=== PATIENT | female | born 1930 | race Caucasian/White ===

== ENCOUNTER 2017-06-05 12:20 | Inpatient (IN) ==
[2017-06-05 15:08] VITALS: BMI 27.3
--- OUTSIDE RECORDS SUMMARY | 2017-06-05 15:31 | External Medical Summary | Continuity of Care Document ---
:1930 Author Organization [facility] Allergies Active Description Code Type Severity Reaction Onset Reported/ Identified Relationship Clinical to Patient Status Yes Penicillins Drug Unknown 07/15/2008 Aller gy Yes erythromycin 2755 Ingre moderate Unknown 06/13/2015 base dient Yes morphine 1545 Ingre moderate Unknown 06/13/2015 dient Yes Norflex 6675 Drug moderate Unknown 06/13/2015 Yes Penicillins 476 Aller moderate Unknown 06/13/2015 gen Group Yes Sulfa 491 Aller moderate GI 06/13/2015 (Sulfonamide gen Problems Antibiotics) Group Yes ketolide ketol User severe shaking 06/14/2015 antibiotics eneida Defin antib ed iotic s Yes Macrolide 479 Aller severe shaking 06/14/2015 Antibiotics gen Group Medications There is no data. Problems Date Dx Attending Type Code Diagnosis Diagnosed By Coded 06/27/2015 TAL STONE MD Z47.89 Encounter for other L orthopedic aftercare 06/27/2015 TAL STONE MD Z96.651 Presence of right L artificial knee joint 06/28/2015 TAL STONE MD Z47.89 Encounter for other L orthopedic aftercare 06/28/2015 TAL STONE MD Z96.651 Presence of right L artificial knee joint 07/06/2015 Tal Stone M17.11 Unilateral Primary Osteoarthritis, Right Knee 07/06/2015 TAL STONE MD Z47.89 Encounter for other L orthopedic aftercare 07/06/2015 TAL STONE MD Z96.651 Presence of right L artificial knee joint 07/25/2015 Froilan Cruz K29.70 Gastritis, Unspecified, Without Bleeding 09/26/2016 Alma Z01.812 Encounter For Brown Preprocedural Laboratory Examination 10/03/2016 Alma 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, Right Upper Limb 12/27/2016 Froilan Cruz Z12.11 Encounter For Screening For Malignant Neoplasm Of Colon 12/27/2016 Symone MERCER MD G44.221 Chronic tension-type CARLY B headache, intractable 12/27/2016 Symone MERCER MD R53.1 Weakness CARLY B 12/28/2016 Symone MERCER MD G44.221 Chronic tension-type CARLY B headache, intractable 12/28/2016 Symone MERCER MD R53.1 Weakness CARLY B 01/26/2017 Symone MERCER MD G44.221 Chronic tension-type CARLY B headache, intractable 01/26/2017 Symone MERCER MD R53.1 Weakness CARLY B 01/27/2017 D G44.221 Chronic tension-type headache, intractable 01/27/2017 D R53.1 Weakness 02/07/2017 D G44.221 Chronic tension-type headache, intractable 02/07/2017 D R53.1 Weakness Procedures Code [place] [address] PT GENEVA ABDI, TAL Sánchez 06/20/2015 EVALUATION 97683 THERAPEUTIC TAL STONE MD 06/20/2015 EXERCISES G8978 MOBILITY TAL STONE MD 06/20/2015 CURRENT STATUS G8979 MOBILITY TAL STONE MD 06/20/2015 GOAL STATUS 23303 TAL QUINTANA MD 06/22/2015 EXERCISES 45730 THERAPEUTIC TAL STONE MD 06/24/2015 EXERCISES 91722 THERAPEUTIC TAL STONE MD 06/27/2015 EXERCISES 46704 THERAPEUTIC TAL STONE MD 06/29/2015 EXERCISES 78198 THERAPEUTIC TAL STONE MD 07/01/2015 EXERCISES 35009 THERAPEUTIC TAL STONE MD 07/04/2015 EXERCISES 69685 THERAPEUTIC TAL STONE MD 07/06/2015 EXERCISES G8979 MOBILITY TAL STONE MD 07/06/2015 GOAL STATUS G8980 MOBILITY D/C TAL STONE MD 07/06/2015 STATUS 47442 THERAPEUTIC CARLY MERCER MD 12/19/2016 EXERCISES 61381 MANUAL CARLY MERCER MD 12/19/2016 THERAPY 1/> [facility] 32432 OT EVAL MESERET MERCER MD, CARLY Kemp 12/19/2016 COMPLEX 45 MIN G8981 BODY CARLY DOWD MD 12/19/2016 CURRENT STATUS G8982 BODY CARLY DOWD MD 12/19/2016 GOAL STATUS 87350 CARLY PADRON MD 12/21/2016 EXERCISES 64003 CARLY ESPINOZA MD 12/21/2016 THERAPY 1/> [facility] 84865 CARLY PADRON MD 12/24/2016 EXERCISES 97364 CARLY ESPINOZA MD 12/24/2016 THERAPY 1/> [facility] 70826 CARLY PADRON MD 01/02/2017 EXERCISES 27213 CARLY ESPINOZA MD 01/02/2017 THERAPY 1/> [facility] 27584 CARLY PADRON MD 01/04/2017 EXERCISES 27716 CARLY ESPINOZA MD 01/04/2017 THERAPY 1/> [facility] 03173 CARLY PADRON MD 01/07/2017 EXERCISES 45327 SHANNA MERCER MD, CARLY Kemp 01/07/2017 THERAPY 1/> [facility] 53936 CARLY PADRON MD 01/11/2017 EXERCISES 30156 CARLY ESPINOZA MD 01/11/2017 THERAPY 1/> [facility] 87981 CARLY PADRON MD 01/16/2017 EXERCISES 60410 CARLY ESPINOZA MD 01/16/2017 THERAPY 1/> [facility] 98079 CARLY PADRON MD 01/21/2017 EXERCISES 99393 CARLY ESPINOZA MD 01/21/2017 THERAPY 1/> [facility] 03828 CARLY PADRON MD 01/25/2017 EXERCISES 47739 CARLY ESPINOZA MD 01/25/2017 THERAPY 1/> [facility] G8982 BODY POS CARLY MERCER MD 01/25/2017 GOAL STATUS G8983 BODY POS D/C CARLY MERCER MD 01/25/2017 STATUS Results There is no data. Encounters ACCT No. Visit Discharge Status Pt. Type Provider Facility Loc./Unit Complaint Date/Time [id number] 07/07/2012 07/07/2012 CLS Emipatimansi Rider [facility].ORT [id number] 11:30:00 23:59:59 shay Orta, [facility] [id number] 12/26/2016 12/26/2016 DIS Outpatie Fabiana Cruz OUTPT Colonoscopy 12:39:00 23:59:00 shay [facility] [id number] 10/02/2016 10/02/2016 DIS Outpatie Lindsay Jung OUTPT right carpal 06:41:00 23:59:00 nt trini, [facility] release; right ring release trigger finger [id number] 09/25/2016 09/25/2016 DIS Outpatie Lindsay Jung OUTPT PAT 12:41:00 23:59:00 nt trini, [facility] [id number] 07/21/2015 07/21/2015 DIS Outpatie Fabiana Cruz OUTPT Esophagogastr 08:30:00 23:59:00 nt [facility] [id number] 06/14/2015 06/17/2015 DIS Inpatien Fabiana Stone INPT Right Total 07:35:00 20:35:00 t [facility] [id number] 12/28/2016 12/28/2016 CLS Outpatie JUAN [place] OT 7 00:01:00 23:59:59 nt , [facility] [id number] 12/19/2016 12/27/2016 DIS Outpatie JUAN [place] OT 9 13:03:00 23:59:00 nt , [facility] [id number] 06/28/2015 07/06/2015 DIS Outpatie GENEVA [place] OTHER 2 00:01:00 14:54:00 nt , [facility] [id number] 06/20/2015 06/27/2015 DIS Outpatie GENEVA [place] OTHER 4 09:20:00 23:59:00 nt [facility] [id number] 01/27/2017 Document 5 00:01:00 Registra tion [id number] 01/17/2017 01/17/2017 CLS Outpatie Juan, 11:20:03 23:59:59 nt Carly [id number] 12/13/2016 12/13/2016 CLS Outpatie Juan, 12:34:19 23:59:59 nt Carly [id number] 11/09/2016 11/09/2016 CLS Outpatie Juan, 11:29:27 23:59:59 nt Carly [id number] 11/08/2016 11/08/2016 CLS Outpatie Juan, 10:04:19 23:59:59 nt Carly [id number] 11/08/2016 11/08/2016 CLS Seda Mercer, 10:02:58 23:59:59 shay Dent [id number] 10/15/2016 10/15/2016 CLS Seda Mercer, 09:32:25 23:59:59 shay Dent [id number] 10/11/2016 10/11/2016 CLS Seda Mercer, 11:00:31 23:59:59 shay Dent
--- OUTSIDE RECORDS SUMMARY | 2017-06-05 15:31 | External Medical Summary ---
:1930 Author Organization [facility] Care Team Providers Name Role Phone JUAN ABDI, CARLY Primary Care Provider [phone] Summary purpose CCDA Sent to [facility] Chief Complaint and Reason for Visit No authorized Reason for Visit (Admitting Diagnosis) is available for this visit. Problem list No authorized problems tracked for continuity of care are available for this visit. Encounters No authorized problems tracked for encounter diagnoses are available for this visit. Medications No medications recorded for this patient visit Allergies, adverse reactions, alerts No allergy information is available for this patient. Immunizations No immunizations recorded for this patient visit Relevant diagnostic tests and/or laboratory data No authorized results are available for this patient visit History of procedures Procedure Code Code Type Description Date Performed Performing Physician 32136 CPT-4 THERAPEUTIC EXERCISES 01-02-2017 CARLY MARTINEZ 37277 CPT-4 MANUAL THERAPY 01-02-2017 CARLY MARTINEZ 26838 CPT-4 THERAPEUTIC EXERCISES 01-04-2017 CARLY MARTINEZ 29074 CPT-4 MANUAL THERAPY 01-04-2017 CARLY MARTINEZ 34261 CPT-4 MANUAL THERAPY 01-07-2017 CARLY MARTINEZ 44462 CPT-4 THERAPEUTIC EXERCISES 01-07-2017 CARLY MARTINEZ 62750 CPT-4 THERAPEUTIC EXERCISES 01-11-2017 CARLY MARTINEZ 65907 CPT-4 MANUAL THERAPY 01-11-2017 CARLY MARTINEZ 94299 CPT-4 THERAPEUTIC EXERCISES 01-16-2017 CARLYAKASH MARTINEZ 28134 CPT-4 MANUAL THERAPY 01-16-2017 CARLYAKASH MARTINEZ 84498 CPT-4 THERAPEUTIC EXERCISES 01-21-2017 CARLY MARTINEZ 40634 CPT-4 MANUAL THERAPY 01-21-2017 CARLY MARTINEZ 87557 CPT-4 THERAPEUTIC EXERCISES 01-25-2017 CARLY MARTINEZ 32974 CPT-4 MANUAL THERAPY 01-25-2017 CALRY MARTINEZ G8982 CPT-4 BODY POS GOAL STATUS 01-25-2017 CARLY MARTINEZ G8983 CPT-4 BODY POS D/C STATUS 01-25-2017 CARLY LITTLE Functional status No functional or cognitive status observations are available for this visit. Vital signs No authorized vital signs are available for this visit. Social history No Social History or smoking status observations were recorded for this visit. ( Unknown if ever smoked.) Treatment Plan No treatment plan text is available for this visit. Hospital discharge instructions No discharge instruction text is available for this visit.
--- OUTSIDE RECORDS SUMMARY | 2017-06-05 15:31 | External Medical Summary ---
:1930 Author Organization [facility] Care Team Providers Name Role Phone CARLY MARTINEZ MD Primary Care Provider [phone] Summary purpose CCDA Sent to [facility] Chief Complaint and Reason for Visit No [...] Code Type Description Date Performed Performing Physician 51936 CPT-4 OT EVAL MOD COMPLEX 45 12-19-2016 CARLY MARTINEZ MIN 65937 CPT-4 THERAPEUTIC EXERCISES 12-19-2016 CARLY MARTINEZ 69733 CPT-4 MANUAL THERAPY 12-19-2016 CARLY MARTINEZ G8981 CPT-4 BODY POS CURRENT 12-19-2016 CARLY MARTINEZ STATUS G8982 CPT-4 BODY POS GOAL STATUS 12-19-2016 CARLY MARTINEZ 07135 CPT-4 THERAPEUTIC EXERCISES 12-21-2016 CARLY MARTINEZ 82947 CPT-4 MANUAL THERAPY 12-21-2016 CARLY MARTINEZ 50908 CPT-4 THERAPEUTIC EXERCISES 12-24-2016 CARLY MARTINEZ 88219 CPT-4 MANUAL THERAPY 12-24-2016 CARLY MARTINEZ Functional status No functional or cognitive status [...]
--- OUTSIDE RECORDS SUMMARY | 2017-06-05 15:31 | External Medical Summary ---
:1930 Author Organization [facility] Address [address] [place] [address] Care Team Providers Name Role Phone Sima Crowder Unavailable Unavailable PROBLEMS Type Condition ICD9-CM Code [id number] Code Onset Condition SNOMED Code Dates Status Problem Personal Z85.828 Active [id number] history of malignant neoplasm of skin ALLERGIES No Information SOCIAL HISTORY Never Assessed PLAN OF CARE Activity Details Pending Test IHC - Immunohistochemical Stain(s) VITAL SIGNS MEDICATIONS Unknown Medications RESULTS No Results PROCEDURES No Known procedures IMMUNIZATIONS No Known Immunizations MEDICAL (GENERAL) HISTORY Type Description Date Medical History Cancer Medical History Arthritis Medical History Prosthetic Joint Medical History Diseases of the Skin Medical History Osteoporosis Medical History High Blood Pressure Surgical History tonsils and adnoids childhood Surgical History Uterine suspensory and appendix 1963 Surgical History Left Knee 1994 Surgical History Breast Lumpectomy 1998 Surgical History Facial Malignant Skin Cancer/ HX several since then 1994 Surgical History Right knee 2016 Surgical History Back 2007 Surgical History Carpal Tunnel Right 2017 Surgical History Carpal Tunnel Left 1998
--- OUTSIDE RECORDS SUMMARY | 2017-06-05 15:31 | External Medical Summary ---
:1930 Author Organization [facility] Address [address] [place] [address] Care Team Providers Name Role Phone Sima Crowder Unavailable Unavailable PROBLEMS Type Condition ICD9-CM Code [id number] Code Onset Condition SNOMED Code Dates Status Problem Personal Z85.828 Active 796540392 history of malignant neoplasm of skin ALLERGIES No Information SOCIAL HISTORY Never Assessed PLAN OF CARE VITAL SIGNS MEDICATIONS Unknown Medications RESULTS No [...]
--- OUTSIDE RECORDS SUMMARY | 2017-06-05 15:31 | External Medical Summary ---
:1930 Author Organization [facility] Address 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 Problem Personal Z85.828 Active 904357546 history of malignant neoplasm of skin ALLERGIES Substance Reaction Event Type Date Status Ketolides Unknown Non Drug Allergy Mar, Active Macrolides Unknown Non Drug Allergy Mar, Active Norflex Unknown Non Drug Allergy Mar, Active Sulfa Unknown Non Drug Allergy Mar, Active PCN Unknown Non Drug Allergy Mar, Active SOCIAL HISTORY Never Assessed PLAN OF CARE Activity Details Follow Up prn Reason: Future/Pending Procedure DESTRUCTION OF LESIONS, BENIGN, UP TO 14 VITAL SIGNS Heart Rate 65 /min 2017-04-11 Height 5 ft 6 in in 2017-04-11 Weight 168.9 lbs 2017-04-11 BMI 27.26 kg/m2 2017-04-11 Blood pressure systolic 148 mm Hg 2017-04-11 Blood pressure diastolic 89 mm Hg 2017-04-11 MEDICATIONS Medication Instructions Dosage Frequency Start Date End Date Duration Status Metoprolol Active Succinate Temazepam Active Citalopram Active Hydrobromide Vitamin C Active Losartan Potassium Active Multivitamin Active Vitamin K2 Active Vitamin D3 Active Advil Active RESULTS No Results PROCEDURES Procedure Date Ordered Result Body Site DESTRUCT B9 LESIONS, UP TO 14 Apr 11, 2017 DOC MEDS VERIFIED W/PT OR RE Apr 11, 2017 IMMUNIZATIONS No Known Immunizations MEDICAL (GENERAL) HISTORY [...] History Right knee 2016 Surgical History Back 2006 Surgical History Carpal Tunnel Right 2017 Surgical History Carpal Tunnel Left 1998
--- OUTSIDE RECORDS SUMMARY | 2017-06-05 15:31 | External Medical Summary ---
:1930 Author Organization [facility] Address 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 900823285 carcinoma of forehead Problem Personal Z85.828 Active 489262509 history of malignant neoplasm of skin ALLERGIES Substance Reaction Event Type Date Status Ketolides Unknown Non Drug Allergy Mar, Active Macrolides Unknown Non Drug Allergy Mar, Active Norflex Unknown Non Drug Allergy Mar, Active Sulfa Unknown Non Drug Allergy Mar, Active PCN Unknown Non Drug Allergy Mar, Active SOCIAL HISTORY Never Assessed PLAN OF CARE Activity Details Follow Up 1 Week Reason:S/R VITAL SIGNS MEDICATIONS Medication Instructions Dosage Frequency Start Date End Date Duration Status Citalopram Active Hydrobromide Temazepam Active Metoprolol Active Succinate Multivitamin Active Losartan Potassium Active Vitamin D3 Active Advil Active Vitamin K2 Active Vitamin C Active RESULTS No Results PROCEDURES Procedure Date Ordered Result Body Site REPAIR FACE/EARS/EYELIDS/NOSE/LIPS <2.5 CM Apr 03, 2017 [facility] 1 STAGE HNFG 5 BLOCKS Apr 03, 2017 [facility] HNFG EA ADDL STAGE Apr 03, 2017 IMMUNIZATIONS No Known Immunizations MEDICAL (GENERAL) [...]
--- OUTSIDE RECORDS SUMMARY | 2017-06-05 15:31 | External Medical Summary ---
:1930 Author Organization [facility] Address [address] [place] [address] Care Team Providers Name Role Phone Sima Crowder Unavailable Unavailable PROBLEMS Type Condition ICD9-CM Code [id number] Code Onset Condition SNOMED Code Dates Status Problem Personal Z85.828 Active 471900019 history of malignant neoplasm of skin ALLERGIES [...]
--- OUTSIDE RECORDS SUMMARY | 2017-06-05 15:31 | External Medical Summary ---
:1930 Author Organization [facility] Summary purpose CCDA Sent to [facility] Chief Complaint and Reason for Visit [...] Code Type Description Date Performed Performing Physician G8978 CPT-4 MOBILITY CURRENT 06-20-2015 MARÍA BEAN STATUS G8979 CPT-4 MOBILITY GOAL STATUS 06-20-2015 MARÍA BEAN 02649 CPT-4 PT EVALUATION 06-20-2015 MARÍA BEAN 56248 CPT-4 THERAPEUTIC EXERCISES 06-20-2015 MARÍA BEAN 73559 CPT-4 THERAPEUTIC EXERCISES 06-22-2015 MARÍA BEAN 63532 CPT-4 THERAPEUTIC EXERCISES 06-24-2015 MARÍA BEAN 79986 CPT-4 THERAPEUTIC EXERCISES 06-27-2015 MARÍA BEAN Functional status No functional or cognitive status [...]
--- OUTSIDE RECORDS SUMMARY | 2017-06-05 15:31 | External Medical Summary ---
:1930 Author Organization [facility] Summary purpose CCDA Sent to [facility] Chief Complaint and Reason for Visit [...] Code Type Description Date Performed Performing Physician 29446 CPT-4 THERAPEUTIC EXERCISES 06-29-2015 MARÍA BEAN 13308 CPT-4 THERAPEUTIC EXERCISES 07-01-2015 MARÍA BEAN 80864 CPT-4 THERAPEUTIC EXERCISES 07-04-2015 MARÍA BEAN Functional status No functional or [...]
--- OUTSIDE RECORDS SUMMARY | 2017-06-05 15:31 | External Medical Summary ---
:1930 Author Organization [facility] Care Team Providers Name Role Phone CARLY MARTINEZ MD Primary Care Provider [phone] Summary purpose CCDA Sent to [facility] Chief Complaint and Reason for Visit No [...] for this patient visit History of procedures No procedures recorded for this patient visit. Functional status No functional or cognitive status [...]
[2017-06-05] MEDS: ACETAMINOPHEN 500 MG TABLET PO SCH ×2 (16:00→22:02)
[2017-06-05] MEDS: ENOXAPARIN 40 MG/0.4 ML INJECTION SQ SCH (17:45)
[2017-06-05] MEDS: HYDROCODONE/APAP 5mg/325mg TABLET PO PRN ×2 (17:45→22:01)
[2017-06-05] MEDS: TEMAZEPAM 15 MG CAPSULE PO SCH (22:01)
[2017-06-05] MEDS: POLYETHYL GLYCOL 3350 17gm PACKET PO SCH (22:02)
[2017-06-06] MEDS: ACETAMINOPHEN 500 MG TABLET PO SCH ×3 (04:51→17:05)
[2017-06-06] MEDS: HYDROCODONE/APAP 5mg/325mg TABLET PO PRN ×3 (06:46→20:25)
[2017-06-06] MEDS: CALCIUM 250 + VIT D 125 TABLET PO SCH (08:33)
[2017-06-06] MEDS: ENOXAPARIN 40 MG/0.4 ML INJECTION SQ SCH (08:34)
[2017-06-06] MEDS: SENNOSIDES 8.6 MG TABLET PO SCH (08:34)
[2017-06-06] MEDS: LOSARTAN 100 MG TABLET PO SCH (08:34)
[2017-06-06] MEDS: CITALOPRAM 10 MG TABLET PO SCH (08:34)
[2017-06-06] MEDS ORDERED: CALCITONIN NASAL SPRAY 3.7ml NS SCH (09:00)
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
--- NOTE | 2017-06-06 11:20 | IRU 24Hr Post Admit Eval ---
24 Hr Post Admission Physical - Relevant Changes Relevant Changes: No Reviewed: I have reviewed the patient's information and concur with the finding and results of the pre-admission screen. Certification: I certify the patient for rehabilitation. - Patient Condition (1) Pelvic fracture Status: Acute Qualifiers: Encounter type: subsequent encounter Pelvic bone location: pubis Sublocation of pubis: other portion of pubis Fracture type: closed Laterality: left Fracture healing: with routine healing Qualified Code(s): S32.592D - Other specified fracture of left pubis, subsequent encounter for fracture with routine healing Code(s): S32.9XXA - Fracture of unspecified parts of lumbosacral spine and pelvis, initial encounter for closed fracture Classification: Present on IRF Admission, IRF Tx That Should Address Diagnosis, Diagnosis Requiring Medical Follow Up (2) Hypertension Status: Chronic Qualifiers: Hypertension type: essential hypertension Qualified Code(s): I10 - Essential (primary) hypertension Code(s): I10 - Essential (primary) hypertension Classification: Present on IRF Admission, IRF Tx That Should Address Diagnosis, Diagnosis Requiring Medical Follow Up (3) Cardiac arrhythmia Status: Chronic Qualifiers: Arrhythmia type: unspecified cardiac arrhythmia Qualified Code(s): I49.9 - Cardiac arrhythmia, unspecified Code(s): I49.9 - Cardiac arrhythmia, unspecified Classification: Present on IRF Admission, Diagnosis Requiring Medical Follow Up - Prior Functional Status Lives With: Alone Residence Type: Apartment/Private Home Assitive Devices: None Prior Functional Status: Indep. at home or school, Indep. w/ IADL - Current Functional Status Current Level of Function: Current level of functioning is as follows: She is independent for eating, requires supervision for grooming. She requires maximum assistance for lower body dressing, moderate assistance for toileting, minimum assistance for bed/ chair/wheelchair transfers and moderate assistance for toilet transfers. Requires total assistance for walking with a rolling walker about 40 feet. She is unable to climb stairs at the present time. Failed Alternative Therapy: Arrived from Acute Care Patient Requirements: The patient requires oversight by rehabilitation physician to manage their rehabilitation treatment plan and multidisciplinary approach to care that can only be provided in an IRF and requires a multidisciplinary approach to care, provided by professional PTs, OTs, STs, dieticians, RTs, rehabilitation nurses and is not available in lesser levels of care. Limitations Req: Mobility Impairment, ADL Impairment Physical Therapy Minutes: 90 Occupational Therapy Minutes: 90 Therapy: The patient is to receive therapy at least 5 days a week. ROM Deficit: Right Lower Extremity, Left Lower Extremity - Complications/Comorbidities Impact on Functional Outcomes: Patient's pain may negatively impact her functional outcome. Barriers to Discharge: Weakness, Endurance, Pain Control - Plan to Avoid Complications Plan to Avoid Complications: The patient cannot receive this care in a lesser intensive setting such as Fdc or Outpatient Therapy due to the patient requiring the following : To allow adequate therapy, the patient requires improved pain management. She requires close monitoring of her blood pressures to avoid excessive hypertension in view of the pain. She requires a multidisciplinary approach with 24 rehabilitation nursing monitoring and assessment as well as PT, OT and medical supervision. .
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
[2017-06-06] MEDS: CALCITONIN NASAL SPRAY 3.7ml NS SCH (14:58)
[2017-06-06] MEDS: POLYETHYL GLYCOL 3350 17gm PACKET PO SCH (20:31)
[2017-06-06] MEDS: TEMAZEPAM 15 MG CAPSULE PO SCH (22:53)
[2017-06-07] MEDS: ACETAMINOPHEN 500 MG TABLET PO SCH ×5 (05:35→22:11)
[2017-06-07] MEDS: HYDROCODONE/APAP 5mg/325mg TABLET PO PRN ×4 (06:11→22:13)
[2017-06-07] MEDS: CALCIUM 250 + VIT D 125 TABLET PO SCH (09:03)
[2017-06-07] MEDS: FAMOTIDINE 20 MG TABLET PO SCH (09:03)
[2017-06-07] MEDS: SENNOSIDES 8.6 MG TABLET PO SCH (09:03)
[2017-06-07] MEDS: ENOXAPARIN 40 MG/0.4 ML INJECTION SQ SCH (09:03)
[2017-06-07] MEDS: CITALOPRAM 10 MG TABLET PO SCH (09:03)
[2017-06-07] MEDS: CALCITONIN NASAL SPRAY 3.7ml NS SCH (09:04)
[2017-06-07] MEDS: LOSARTAN 100 MG TABLET PO SCH (09:04)
--- NOTE | 2017-06-07 11:07 | IRU Progress Note ---
- Subjective/Serverity of Illness Date: 06/07/17 Ms. Sr was assessed in her room on inpatient rehabilitation. She says that the pain continues to be an issue. This is predominantly in both groins but also somewhat in the right piriformis area she states. She does have discomfort with transfers and with ambulation. Despite that she is very cooperative with therapy and is making progress. Denies cardiac arrhythmia/palpitations sensations. Denies dyspnea. Brief therapy update: For occupational therapy she is independent for upper body dressing. Lower body dressing has improved from standby assist to modified independent level. Bed/chair/wheelchair transfers have improved from minimum assistance to modified independent. She is also seen by physical therapy. Bed/ chair/wheelchair transfers are standby assistance level. She is now able to ambulate 214 feet with standby assist with a front-wheeled walker. Update on medical issues were actively monitoring and managing as follows: 1. Hypertension: Her blood pressure appears to be adequately controlled at present. 2. Cardiac Arrhythmia: Denies palpitations. Upon examination she appears to be in a regular rhythm. 3. Uncontrolled pain from the pelvic fracture: She continues to complain of discomfort from the pelvic fracture which is a barrier to progress. Exam Vital Signs: Temperature 98.4 F 06/07/17 08:00 Pulse Rate 83 06/07/17 08:00 Respiratory Rate 16 06/07/17 08:00 Blood Pressure 124/67 06/07/17 08:00 Pulse Oximetry 90 06/07/17 08:00 Height/Weight/BMI: Height 1.68 m Weight 76.8 kg Body Mass Index 27.3 - Constitutional Present: mild distress (Bilat groin pain), well nourished, well developed, cooperative - Routine HEENT Exam Head: Present: normocephalic Eye: Present: EOMI ENT: Present: mucous membranes moist, oropharynx clear, dentition normal - Routine Neck Exam Present: supple - Routine Respiratory Exam Present: CTA bilaterally. Absent: wheezes - Routine Cardiovascular Exam Present: RRR, S1, S2. Absent: murmur - Routine Abdominal Exam Present: soft, normoactive bowel sounds, non distended. Absent: tenderness - Routine Extremities Exam Present: no edema - Routine Skin Exam Present: dry, warm - Routine Neurological Exam Present: alert, oriented X3, CN II-XII intact - Routine Psychiatric Exam Present: normal affect Results IRU - Labs Labs: I have reviewed the patient's labs and other providers notes. IRU A/P (1) Pelvic fracture Qualifiers: Encounter type: subsequent encounter Pelvic bone location: pubis Sublocation of pubis: other portion of pubis Fracture type: closed Laterality: left Fracture healing: with routine healing Qualified Code(s): S32.592D - Other specified fracture of left pubis, subsequent encounter for fracture with routine healing Current visit: Yes Status: Acute She is very cooperative with therapy and is making progress. However she does have significant pain in bilateral groin areas. This is an impediment to her progress. She remains on hydrocodone 5 mg size tablets. (2) Hypertension Qualifiers: Hypertension type: essential hypertension Qualified Code(s): I10 - Essential (primary) hypertension Current visit: Yes Status: Chronic Her blood pressures are reviewed and appear to be adequate. (3) Cardiac arrhythmia Qualifiers: Arrhythmia type: unspecified cardiac arrhythmia Qualified Code(s): I49.9 - Cardiac arrhythmia, unspecified Current visit: Yes Status: Chronic She has reported a history of "extra systoles" in the past. Also was told that she has "mild atrial fibrillation" in the past. At present she denies any palpitations and exam reveals a regular rhythm. DVT Prophylaxis: Lovenox Resuscitation Status: Full Code - Course Hospital Course: Mitul Pederson MD: 06/07/17 11:08 Patient is very cooperative with therapy despite her pain. Remains on hydrocodone 5 mg tablets. Pain mainly in bilateral groin areas. Blood pressures are stable. - Interventions to Obtain Goals PT Treatment Plan: Balance/Proprioception, Functional Activities, Gait Training , Patient/Family Education, Therapeutic Exercise OT Treatment Plan: ADL (Basic Care), Balance Training, IADL, Pt./Family Education, Ther. Exercise for ADL Goals Progress/Modifications: Patient is progressing with therapy despite her pain. We will modify pain medication as needed. Her blood pressures are stable. She denies any palpitations and heart exam is unremarkable at present. Please note that the patient's individual plan of care was developed and documented today, requiring review of therapy notes, medical conditions and anticipated functional recovery. This required additional medical decision making with regard to interaction of the patient's medical issues with the anticipated functional recovery. Please see separate document
--- NOTE | 2017-06-07 11:12 | IRU Plan of Care ---
[facility] Overall Plan of Care - Date Date: 06/07/17 - Relevant Changes Relevant Changes: No Reviewed: I have reviewed the patient's information and concur with the finding and results of the pre-admission screen. Certification: I certify the patient for rehabilitation. - Medical Prognosis Medical Prognosis: Good Vital Signs: Last Vital Signs Temp 98.4 F 06/07/17 08:00 Pulse 83 06/07/17 08:00 Resp 16 06/07/17 08:00 BP 124/67 06/07/17 08:00 Pulse Ox 90 06/07/17 08:00 - Anticipated Interventions Anticipated Interventions: The patient requires inpatient IRF care for PT and OT for residuals remaining from fracture of pelvis resulting in muscular weakness and strength deficits. An individualized overall plan of care has been developed after careful review of the patient's preadmission screening, post admission physician evaluation and assessments of all therapy disciplines and/or other pertinent clinicians involved in treating the patient. This indicates medical necessity and rehabilitation necessity have been established through a thorough review of all available medical information. ROM Deficit: Right Lower Extremity, Left Lower Extremity - Current Functional Status Failed Alternative Therapy: Arrived from Acute Care Patient Requires: The patient requires oversight by rehabilitation physician to manage their rehabilitation treatment plan and multidisciplinary approach to care that can only be provided in an IRF and requires a multidisciplinary approach to care, provided by professional PTs, OTs, STs, rehabilitation nurses, and may require STs, dieticians, and RTS. This is not available in lesser levels of care. Physical Therapy Minutes: 90 Occupational Therapy Minutes: 90 Therapy: The patient is to receive therapy at least 5 days a week. - Anticipated LOS/Outcomes Anticipated Functional Outcome: It is anticipated the patient will be able to return to her home at modified independent level of functioning with a front-wheeled walker. It is anticipated her pain will continue however for several weeks but be manageable with oral pain medications and positioning. It is also anticipated she will be independent with ADLs Anticipated Length of Stay (days): 7 Anticipated DC Destination: Home, Self Care, Home Health Service Home Safety Plan: The patient will be provided with the development of a Home Safety Plan for return to a home or home-like environment and and to ensure safety post discharge. - Plan to Avoid Complications Barriers to Attaining Goals: Weakness, Endurance, Pain Control Plan to Avoid Complications: The patient cannot receive this care in a lesser intensive setting such as Senior Care or Outpatient Therapy due to the patient requiring the following : Due to risk of uncontrolled pain as well as her hypertension and risk of falls , the patient requires a multidisciplinary approach with 24 rehabilitation nursing monitoring and treatment of her pain, physical therapy and occupational therapy with medical supervision.
[2017-06-07] MEDS: TEMAZEPAM 15 MG CAPSULE PO SCH (20:28)
[2017-06-07] MEDS: POLYETHYL GLYCOL 3350 17gm PACKET PO SCH (20:29)
[2017-06-08] MEDS: ACETAMINOPHEN 500 MG TABLET PO SCH ×4 (03:31→22:33)
[2017-06-08] MEDS: HYDROCODONE/APAP 5mg/325mg TABLET PO PRN ×3 (06:42→19:12)
[2017-06-08] MEDS: LOSARTAN 100 MG TABLET PO SCH (09:59)
[2017-06-08] MEDS: CITALOPRAM 10 MG TABLET PO SCH (09:59)
[2017-06-08] MEDS: CALCIUM 250 + VIT D 125 TABLET PO SCH (09:59)
[2017-06-08] MEDS: SENNOSIDES 8.6 MG TABLET PO SCH ×2 (09:59→10:13)
[2017-06-08] MEDS: FAMOTIDINE 20 MG TABLET PO SCH (10:03)
[2017-06-08] MEDS: ENOXAPARIN 40 MG/0.4 ML INJECTION SQ SCH (10:03)
[2017-06-08] MEDS: CALCITONIN NASAL SPRAY 3.7ml NS SCH (10:04)
[2017-06-08] MEDS: POLYETHYL GLYCOL 3350 17gm PACKET PO SCH (20:18)
[2017-06-08] MEDS: TEMAZEPAM 15 MG CAPSULE PO SCH (20:18)
[2017-06-09] MEDS: ACETAMINOPHEN 500 MG TABLET PO SCH ×3 (03:12→18:02)
[2017-06-09] MEDS: IBUPROFEN 200 MG TABLET PO PRN (08:18)
[2017-06-09] MEDS: SENNOSIDES 8.6 MG TABLET PO SCH (08:19)
[2017-06-09] MEDS: FAMOTIDINE 20 MG TABLET PO SCH (08:19)
[2017-06-09] MEDS: CITALOPRAM 10 MG TABLET PO SCH (08:20)
[2017-06-09] MEDS: CALCIUM 250 + VIT D 125 TABLET PO SCH (08:20)
[2017-06-09] MEDS: LOSARTAN 100 MG TABLET PO SCH (08:20)
[2017-06-09] MEDS: CALCITONIN NASAL SPRAY 3.7ml NS SCH (09:43)
[2017-06-09] MEDS: HYDROCODONE/APAP 5mg/325mg TABLET PO PRN ×3 (09:43→20:21)
[2017-06-09] MEDS: ENOXAPARIN 40 MG/0.4 ML INJECTION SQ SCH (09:43)
--- NOTE | 2017-06-09 14:19 | Progress Note ---
- Date 06/09/17 Subjective: F/U: pelvic fracture Ledy is seen today while sitting in her recliner. She has a bright affect and reports that she feels great today, stating that she slept well last night. Her pain is well controlled and she feels that she is making great progress with therapies. She denies any concerns or complaints. No chest pain, shortness of breath, abdominal pain, nausea, vomiting or dysuria. Her appetite is good and bowels are moving. She does express some anxiousness about being discharged home "too soon" but no known discharge plan is currently set. Objective Vital signs: Temperature 98.4 F 06/09/17 07:45 Pulse Rate 91 06/09/17 07:45 Respiratory Rate 18 06/09/17 07:45 Blood Pressure 144/72 H 06/09/17 07:45 Pulse Oximetry 95 06/09/17 07:45 Height/Weight/BMI: Height 5 ft 6 in Weight 169 lb 5.04 oz Body Mass Index 27.3 Comments: Patient sitting in her recliner with bright affect and cheerful. - Constitutional Present: no acute distress, well nourished, well developed, cooperative - Routine HEENT Exam Head: Present: normocephalic, atraumatic Eye: Present: PERRL. Absent: conjunctival icterus ENT: Present: mucous membranes moist - Routine Respiratory Exam Present: CTA bilaterally. Absent: rales, respiratory distress, rhonchi, stridor , wheezes, crackles - Routine Cardiovascular Exam Present: RRR, S1, S2 - Routine Abdominal Exam Present: soft, normoactive bowel sounds, non distended, non tender - Routine Extremities Exam Present: no edema, non tender, pulses intact - Routine Back/Spine/Pelvis Exam Back/Spine: Present: full ROM. Absent: vertebral tenderness - Routine Musculoskeletal Exam Musculoskeletal: Present: moving extremities well - Routine Skin Exam Present: intact, dry, warm. Absent: jaundice Comments: afebrile. - Routine Neurological Exam Present: alert, oriented X3, CN II-XII intact, moving all extremities, hearing grossly intact, normal speech. Absent: facial asymmetry - Routine Lymphatic Exam Lymphatic: Absent: lymphedema - Routine Psychiatric Exam Present: cooperative Results - Labs CBC & Chem 7: 06/10/17 04:15 06/10/17 04:15 Assessment and Plan Assessment and Plan: Impression Pelvic fractures Abdominal wall bruising HTN Cardiac arrhythmia, rate control with metoprolol (questionable hx of A-fib) History of breast cancer, s/p chemo and radiation (approx 18 yrs ago) Depression/anxiety since the of her 3 years ago Spinal stenosis GERD Insomnia Plan - 06/09/17. Ledy appears to be making good gains and is medically stable. Continue therapies and pain control per Dr. Pederson. Labs on 06/06/17 revealed anemia (hgb 11.9) and otherwise unremarkable. Patient denies any dizziness, lightheadedness or syncope. Will continue to monitor with periodic labs. Continue Lovenox for DVT prophylaxis. Continue to encourage ambulation and incentive spirometry. DVT Prophylaxis: Lovenox GI Prophylaxis: Protonix Resuscitation Status: Full Code - Time spent with patient Time with patient PN: 25 minutes - Physician Narrative Physician: Sharonda Noriega MD Narrative: Date: 06/09/17 Time: 1414 Hospital Course Summary Disclaimer: The visit summary below is not to be considered part of the above Progress Note. Hospital Course: 06/06/17 PT/OT/pain meds per Dr. Pederson. Outside records reviewed; labs hgb 12.5, K 3.6, Cr 0.9, BUN 21 while hospitalized at [place]. Labs repeated this am were stable. VSS. Continue meds for HTN. Of note, records from [place] indicate that she used to take HCTZ but this was dc'd during hospitalization. Start Pepcid d/t ibuprofen use and hx of GERD. Lovenox for VTE ppx. Plan - 06/09/17. Ledy appears to be making good gains and is medically stable. Continue therapies and pain control per Dr. Pederson. Labs on 06/06/17 revealed anemia (hgb 11.9) and otherwise unremarkable. Patient denies any dizziness, lightheadedness or syncope. Will continue to monitor with periodic labs. Continue Lovenox for DVT prophylaxis. Continue to encourage ambulation and incentive spirometry.
[2017-06-09] MEDS: POLYETHYL GLYCOL 3350 17gm PACKET PO SCH (20:22)
[2017-06-09] MEDS: TEMAZEPAM 15 MG CAPSULE PO SCH (20:22)
[2017-06-10] MEDS: ACETAMINOPHEN 500 MG TABLET PO SCH ×4 (00:13→17:40)
[2017-06-10] MEDS: HYDROCODONE/APAP 5mg/325mg TABLET PO PRN ×3 (08:24→17:39)
[2017-06-10] MEDS: SENNOSIDES 8.6 MG TABLET PO SCH (09:00)
[2017-06-10] MEDS: FAMOTIDINE 20 MG TABLET PO SCH (09:01)
[2017-06-10] MEDS: CITALOPRAM 10 MG TABLET PO SCH (09:02)
[2017-06-10] MEDS: CALCIUM 250 + VIT D 125 TABLET PO SCH (09:02)
[2017-06-10] MEDS: LOSARTAN 100 MG TABLET PO SCH (09:06)
[2017-06-10] MEDS ORDERED: SENNOSIDES 8.6 MG TABLET PO PRN (10:38)
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
[2017-06-10] MEDS: ENOXAPARIN 40 MG/0.4 ML INJECTION SQ SCH (11:36)
[2017-06-10] MEDS: CALCITONIN NASAL SPRAY 3.7ml NS SCH (11:36)
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
[2017-06-10] MEDS: POLYETHYL GLYCOL 3350 17gm PACKET PO SCH (21:31)
[2017-06-10] MEDS: TEMAZEPAM 15 MG CAPSULE PO SCH (21:32)
[2017-06-10] MEDS: IBUPROFEN 200 MG TABLET PO PRN (21:34)
[2017-06-11] MEDS: ACETAMINOPHEN 500 MG TABLET PO SCH ×3 (04:00→09:36)
[2017-06-11] MEDS: HYDROCODONE/APAP 5mg/325mg TABLET PO PRN ×3 (04:16→13:19)
[2017-06-11] MEDS: CALCIUM 250 + VIT D 125 TABLET PO SCH (09:10)
[2017-06-11] MEDS: FAMOTIDINE 20 MG TABLET PO SCH (09:10)
[2017-06-11] MEDS: CITALOPRAM 10 MG TABLET PO SCH (09:10)
[2017-06-11] MEDS: CALCITONIN NASAL SPRAY 3.7ml NS SCH (09:10)
[2017-06-11] MEDS: ENOXAPARIN 40 MG/0.4 ML INJECTION SQ SCH (09:11)
[2017-06-11 09:13] VITALS: BP 159/71; PULSE 74; RESP 18; TEMP 97.7; O2SAT 95
[2017-06-11] MEDS: LOSARTAN 100 MG TABLET PO SCH (09:35)
--- NOTE | 2017-06-11 10:49 | IRU Progress Note ---
- Subjective/Serverity of Illness Date: 06/11/17 Ms. Sr was interviewed and examined in her room on inpatient rehabilitation. She requests a prescription for toilet bars to go around the toilet for safety, leg estimator printing and a portable seat cushion. This is provided today to her in the form of a prescription. Denies any chest pain or shortness of breath. Appetite remains good. She is stable for dismissal. Exam Vital Signs: Temperature 97.7 F 06/11/17 09:12 Pulse Rate 74 06/11/17 09:12 Respiratory Rate 18 06/11/17 09:12 Blood Pressure 159/71 H 06/11/17 09:12 Pulse Oximetry 95 06/11/17 09:12 Height/Weight/BMI: Height 1.68 m Weight 79.6 kg Body Mass Index 27.3 - Constitutional Present: no acute distress, well nourished, well developed, cooperative - Routine HEENT Exam Head: Present: normocephalic Eye: Present: EOMI ENT: Present: mucous membranes moist, dentition normal - Routine Neck Exam Present: supple - Routine Respiratory Exam Present: CTA bilaterally. Absent: dyspnea, respiratory distress, wheezes - Routine Cardiovascular Exam Present: RRR, S1, S2. Absent: murmur - Routine Abdominal Exam Present: soft, normoactive bowel sounds, non distended. Absent: tenderness - Routine Extremities Exam Present: normal capillary refill - Routine Skin Exam Present: dry, warm - Routine Neurological Exam Present: alert, oriented X3, CN II-XII intact - Routine Psychiatric Exam Present: normal affect IRU A/P (1) Pelvic fracture Qualifiers: Encounter type: subsequent encounter Pelvic bone location: pubis Sublocation of pubis: other portion of pubis Fracture type: closed Laterality: left Fracture healing: with routine healing Qualified Code(s): S32.592D - Other specified fracture of left pubis, subsequent encounter for fracture with routine healing Current visit: Yes Status: Acute Prescription provided for seat cushion, toilet riser bars, and leg estimator printing. These are needed for her safety and ADLs. (2) Cardiac arrhythmia Qualifiers: Arrhythmia type: unspecified cardiac arrhythmia Qualified Code(s): I49.9 - Cardiac arrhythmia, unspecified Current visit: Yes Status: Chronic She has not displayed evidence of cardiac arrhythmia while here. (3) Hypertension Qualifiers: Hypertension type: essential hypertension Qualified Code(s): I10 - Essential (primary) hypertension Current visit: Yes Status: Chronic DVT Prophylaxis: Lovenox Resuscitation Status: Full Code - Course Hospital Course: Mitul Pederson MD: 06/07/17 11:08 Patient is very cooperative with therapy despite her pain. Remains on hydrocodone 5 mg tablets. Pain mainly in bilateral groin areas. Blood pressures are stable. 06/10/17 10:44 Continues to improve with therapy. Continues to have discomfort. Blood pressures elevated but likely related to pain. She is having some loose stools so she wants to cut back on laxatives. 06/11/17 10:49 Patient is doing well. She is safe for dismissal. Discussed home health. - Interventions to Obtain Goals PT Treatment Plan: Balance/Proprioception, Functional Activities, Gait Training , Patient/Family Education, Therapeutic Exercise OT Treatment Plan: ADL (Basic Care), Balance Training, IADL, Pt./Family Education, Ther. Exercise for ADL
[2017-06-11] MEDS: IBUPROFEN 200 MG TABLET PO PRN (13:13)
== END 2017-06-11 13:40 | disposition home health service (06) | DRG 561 ==
PROVIDERS: ADMIT Internal Medicine; ATTEND Internal Medicine